=== PATIENT | female | born 1990 | race Caucasian/White ===

== ENCOUNTER 2019-07-30 10:32 | Emergency (ER) | payer BC ==
[2019-07-30 10:50] VITALS: BP 129/85
--- NOTE | 2019-07-30 11:26 | UC ---
Nausea/Vomiting/Diarrhea HPI - HPI Summary HPI Summary: 29-year-old female who had a mild headache on Sunday and then on Sunday she started having diarrhea. Sunday she started vomiting and has vomited 2 times in the past 24 hours the last time being 9:00 PM last evening. She denies any urinary symptoms denies any fever or chills. Works as a schoolteacher. - History of Current Complaint Chief Complaint: UCGeneralIllness Stated Complaint: VOMITING, NAUSEA, AND DIARRHEA Time Seen by Provider: 07/30/19 11:14 Hx Obtained From: Patient Hx Last Menstrual Period: 07/18/19 ?: No Onset/Duration: Gradual Onset, Lasting Days Timing: Intermittent Episodes Lasting: Severity Initially: Mild Severity Currently: Mild Pain Intensity: 0 Location: Other - Denies abdominal pain. Alleviating Factor(s): Nothing, Other: - Patient has been keeping down some tonya jay and crackers. Nausea/Vomiting Presence: Nauseated, Vomiting - Last time she vomited was last evening at 9:00. Vomiting Frequency: Daily - 2 times in the past 24 hours. Nausea/Vomiting Duration: 12-24 hours Diarrhea Presence: Yes Diarrhea Frequency: Every 3-4 hours - Patient had diarrhea on Sunday but that has resolved. Diarrhea Duration: 12-24 hours Diarrhea Characteristics: Watery - Risk Factors Influenza Risk Factors: Negative - Allergies/Home Medications Allergies/Adverse Reactions: Allergies Allergy/AdvReac Type Severity Reaction Status Date / Time pseudoephedrine Allergy Headache Verified 07/30/19 10:44 [From [facility]] Home Medications: Home Medications Venlafaxine HCl 100 mg PO DAILY 07/30/19 [History Confirmed 07/30/19] PMH/Surg Hx/FS Hx/Imm Hx Previously Healthy: Yes - Surgical History Surgical History: Yes Surgery Procedure, Year, and Place: [facility] 2015 - Family History Known Family History: Positive: Non-Contributory - Social History Occupation: Employed Full-time - Patient works as a schoolteacher. Lives: With Family Alcohol Use: Occasionally Substance Use Type: None Smoking Status (MU): Never Smoked Tobacco Review of Systems All Other Systems Reviewed And Are Negative: Yes Gastrointestinal: Positive: Vomiting - Vomiting 2 times in the past 24 hours and the vomiting started on Sunday, with the last time she vomited last night at 9 PM, Diarrhea - Diarrhea started on Sunday and has resolved, Nausea - Patient continues with mild nausea. Genitourinary: Positive: Negative - Patient denies any urinary symptoms. Is Patient Immunocompromised?: No Physical Exam Triage Information Reviewed: Yes Appearance: Well-Appearing, No Pain Distress, Well-Nourished Vital Signs: Initial Vital Signs Temp 97.3 F 07/30/19 10:45 Pulse 93 07/30/19 10:45 Resp 18 07/30/19 10:45 BP 129/85 07/30/19 10:45 Pulse Ox 97 07/30/19 10:45 Vital Signs Reviewed: Yes Respiratory: Positive: Lungs clear, Normal breath sounds, No respiratory distress, No accessory muscle use Cardiovascular: Positive: RRR, No Murmur, Pulses Normal, Brisk Capillary Refill Abdomen Description: Positive: Nontender, No Organomegaly, Soft. Negative: CVA Tenderness (R), CVA Tenderness (L), Distended, Guarding, Hepatomegaly, McBurney' s Point Tenderness, Splenomegaly Bowel Sounds: Positive: Present Musculoskeletal Exam: Normal Neurological Exam: Normal Psychological Exam: Normal Skin Exam: Normal Naus/Vom/Diarrhea Course/Dx - Course Course Of Treatment: The patient is comfortable here. I'm going to treat her with Zofran for nausea and gradually increased to her regular diet since last time she vomited was last evening at 9 PM. No work until Sunday. If she starts vomiting again to the point where she feels like she is going to pass out she is go to the emergency room. Her urinalysis had 1+ leukocytes and I'm going to send that for culture however she has no symptoms of urinary tract infection therefore I would like to wait until the culture results, since I think her symptoms are due to the viral illness that is going through the community right now. - Differential Dx/Diagnosis Provider Diagnosis: Nausea & vomiting Is Visit Related: No Condition At Discharge: Good Discharge ED - Sign-Out/Discharge Documenting (check all that apply): Patient Departure All imaging exams completed and their final reports reviewed: No Studies - Discharge Plan Condition: Good Disposition: HOME Prescriptions: Ondansetron HCl [Zofran 4 MG TAB] 4 mg PO Q8H PRN #10 tab PRN Reason: Nausea Patient Education Materials: Acute Nausea and Vomiting (ED) Forms: *Work Release Referrals: No Primary Care Phys,NOPCP [Primary Care Provider] - Additional Instructions: Clear liquids today, soup and crackers later today when you have no further vomiting then gradually increase to your regular diet. Avoid spicy or fatty foods today. Definite follow up with your primary care provider if no improvement in 1 day. Go to the ER if you feel like you are going to pass out or if you feel lightheaded or dizzy. - Billing Disposition and Condition Condition: GOOD Disposition: Home - Attestation Statements Provider Attestation: Per institutional requirements, I have reviewed the chart, however, I was not consulted specifically or made aware of this patient by the midlevel provider. I did not personally evaluate, interact with , or disposition this patient.
--- NOTE | 2019-07-31 16:21 | UC ---
- Progress Note Progress Note: Urine culture from July 30, 2019 comes back as greater than 100,000 Escherichia coli. Nursing to call patient and from the results and let them know I have called in antibiotics for them to take. If the patient's worse she needs reevaluation either here or at her primary care doctor's her emergency room based on the severity of her symptoms. Course/Dx - Diagnoses Provider Diagnoses: Nausea & vomiting Is Visit Related: No Discharge ED - Sign-Out/Discharge Documenting (check all that apply): Patient Departure All imaging exams completed and their final reports reviewed: No Studies - Discharge Plan Condition: Good Disposition: HOME Prescriptions: Cephalexin CAP* [Keflex CAP*] 500 mg PO TID #21 cap Ondansetron HCl [Zofran 4 MG TAB] 4 mg PO Q8H PRN #10 tab PRN Reason: Nausea Patient Education Materials: Acute Nausea and Vomiting (ED) Forms: *Work Release Referrals: No Primary Care Phys,NOPCP [Primary Care Provider] - Additional Instructions: Clear liquids today, soup and crackers later today when you have no further vomiting then gradually increase to your regular diet. Avoid spicy or fatty foods today. Definite follow up with your primary care provider if no improvement in 1 day. Go to the ER if you feel like you are going to pass out or if you feel lightheaded or dizzy. - Billing Disposition and Condition Condition: GOOD Disposition: Home
== END 2019-07-30 11:32 | disposition home or self-care (01) ==
LOC: UCEAST 10:32
DX: R11.2 Nausea with vomiting, unspecified (principal); R51 Headache; R19.7 Diarrhea, unspecified; Z88.8 Allergy status to other drugs, medicaments and biological substances
CPT/HCPCS: 81003; 84702; 87077; 87086; 87186; 99202; G0463